=== PATIENT | female | born 1945 | race Caucasian/White ===

== ENCOUNTER 2016-10-11 17:22 | Inpatient (IN) | payer MEDICARE, BC ==
[2016-10-11 17:28] VITALS: BP 136/78
[2016-10-11] MEDS ORDERED: Maalox 30 mL Cup PO PRN (17:29)
[2016-10-11] MEDS ORDERED: Magnesium Hydroxide (MOM) 30 mL UDC PO PRN (17:29)
[2016-10-11] MEDS ORDERED: TIZANIDINE HCL 2 MG PO PRN (18:36)
[2016-10-11] MEDS ORDERED: Hydrocodone/APAP 10 mg/325 mg Tab PO PRN (18:36)
[2016-10-11] MEDS ORDERED: Albuterol/Ipratropium Neb 3 ML AERS HHN PRN (18:36)
[2016-10-11] MEDS ORDERED: LOVASTATIN 20 MG PO SCH (21:00)
[2016-10-11] MEDS ORDERED: Benztropine 1 MG TAB PO SCH (21:00)
[2016-10-11] MEDS ORDERED: Lactulose 10 Gm/15 mL 30mL UDC PO SCH (21:00)
[2016-10-12] MEDS ORDERED: Pantoprazole 40 mg EC Tab PO SCH (07:30)
[2016-10-12] MEDS ORDERED: Levothyroxine 0.15 Mg Tab PO SCH (07:30)
[2016-10-12] MEDS ORDERED: DICLOFENAC POTASSIUM 50 MG PO SCH (09:00)
[2016-10-12] MEDS ORDERED: Multivitamin Tab PO SCH (09:00)
[2016-10-12] MEDS ORDERED: Aspirin 81mg Chewable Tab PO SCH (09:00)
[2016-10-12] MEDS ORDERED: AMITRIPTYLINE HCL 50 MG PO SCH (17:00)
== END 2016-10-12 00:04 | disposition home or self-care (01) | DRG 885 ==
LOC: GERO 17:22
PROVIDERS: ADMIT Psychiatry & Neurology Psychiatry; ATTEND Psychiatry & Neurology Psychiatry
DX: F29 Unspecified psychosis not due to a substance or known physiological condition (principal); I10 Essential (primary) hypertension; F32.9 Major depressive disorder, single episode, unspecified; R41.0 Disorientation, unspecified
CPT/HCPCS: Z7610